=== PATIENT | female | born 1975 | race African-American/Black ===

== ENCOUNTER 2025-08-03 11:18 | Emergency (ER) | payer SELFPAY ==
[~2025-08-03] VITALS: Ht 160 cm; Wt 63.0 kg
[2025-08-03 11:20] VITALS: O2SAT 98
[2025-08-03] MEDS: SODIUM CHLORIDE 0.9% 1,000 ML IV ONE (12:21)
[2025-08-03 12:24] LABS: CLARITY URINE CLEAR (CLEAR); COLOR URINE DARK YELLOW (YELLOW); GLUCOSE URINE NEGATIVE (NEGATIVE); KETONES URINE 4+ (NEGATIVE); LEUKOCYTE ESTERASE URINE NEGATIVE (NEGATIVE); NITRITE URINE NEGATIVE (NEGATIVE); OCCULT BLOOD URINE TRACE (NEGATIVE); PH URINE 7.5 (4.5-8.0); PROTEIN URINE 2+ (NEGATIVE); SPECIFIC GRAVITY URINE 1.023 (1.005-1.030); UROBILINOGEN URINE 1.0 E.U./dL (0.2-1.0)
[2025-08-03] MEDS: PANTOPRAZOLE SODIUM 40 MG/VIAL IV ONE (12:25)
[2025-08-03] MEDS: ONDANSETRON HCL 4MG/2ML INJ IV ONE (12:25)
[2025-08-03] MEDS: METOCLOPRAMIDE HCL 10MG/2ML VIAL IV ONE (12:25)
[2025-08-03 12:28] LABS: BASOPHILS % 0.6 % (0.0-2.0); EOSINOPHILS % 0.1 % (0.0-5.0); HEMATOCRIT. 39.7 % (36.0-48.0); HEMOGLOBIN. 13.4 g/dL (12.0-16.0); LYMPHOCYTES % 14.3 % (20.0-50.0); MEAN PLATELET VOLUME 7.7 fl (7.4-10.4); MONOCYTES % 6.1 % (2.0-8.0); NEUTROPHILS % 78.9 % (40.0-76.0); PLATELET 278 x1000/uL (130-400); RED BLOOD CELL COUNT 4.23 mill/uL (4.2-5.4); RED CELL DISTRIBUTION WIDTH 14.4 % (11.6-14.6)
[2025-08-03 12:52] LABS: CREATININE 0.6 mg/dL (0.6-1.0); UREA NITROGEN BLOOD 6 mg/dL (9-23)
[2025-08-03 12:54] LABS: ASPARTATE AMINOTRANSFERASE 16 IU/L (<34); BILIRUBIN DIRECT 0.1 mg/dL (<=3.0); BILIRUBIN TOTAL 0.4 mg/dL (0.1-1.0); PROTEIN TOTAL 7.6 g/dL (6.0-8.3)
[2025-08-03 12:55] LABS: HCG SCREEN NEGATIVE
[2025-08-03 13:11] LABS: WBC URINE 0-2 /hpf (0-2)
[2025-08-03 13:12] LABS: BACTERIA URINE 1+; SQUAMOUS EPITHELIAL CELL URINE 1+ /lpf (RARE/1+); YEAST URINE NONE SEEN
[2025-08-03] MEDS ORDERED: ONDA-239 PO (14:14)
[2025-08-03] MEDS ORDERED: OMEP40CA20 MT (14:14)
[2025-08-03 14:40] VITALS: BP 162/110; PULSE 67; RESP 17; TEMP 36.7; O2SAT 100
== END 2025-08-03 14:40 | disposition home or self-care (01) ==
LOC: ER 11:18
DX: R10.13 Epigastric pain (principal); R11.2 Nausea with vomiting, unspecified; F17.200 Nicotine dependence, unspecified, uncomplicated; I10 Essential (primary) hypertension; Z87.11 Personal history of peptic ulcer disease; Z87.19 Personal history of other diseases of the digestive system
CPT/HCPCS: 80076; 80048; 81003; 81025; 84703; 83690; 85025; 36415; 96361; 96374; 96375; 99284; J2765; J2405; J2470; J7030; Z7610 ×3